=== PATIENT | female | born 1955 | race Caucasian/White ===

== ENCOUNTER 2024-02-24 09:43 | Day surgery (SDC) | payer MEDICARE, BC ==
[2024-02-24] MEDS ORDERED: Sodium Chloride 0.9% 10 ML Syringe IV ONE (09:44)
[2024-02-24] MEDS ORDERED: Dexamethasone 4 MG/ML SDV IV ONE (09:44)
[2024-02-24] MEDS ORDERED: Midazolam 1 MG/ML 2 ML SDV IV ONE (09:44)
[2024-02-24] MEDS ORDERED: Acetaminophen 325 MG Tab PO PRN (10:15)
[2024-02-24] MEDS ORDERED: Ondansetron 4 MG/2 ML SDV IVPUSH PRN (10:15)
[2024-02-24] MEDS ORDERED: Acetaminophen/Codeine 300-30 MG Tab PO PRN (10:15)
[2024-02-24] MEDS: Sodium Chloride 0.9% 10 ML Syringe FLUSH PRN (10:29)
[2024-02-24] MEDS: Proparacaine 0.5% Ophth Soln 15 ML Bottle EYERT ONE ×2 (10:30→10:52)
[2024-02-24] MEDS: Moxifloxacin 0.5% Ophth Soln 3 ML Bottle EYERT ONE (10:31)
[2024-02-24] MEDS: Povidone-Iodine 5% Sterile Ophth Soln 30 ML Bottle EYERT ONE ×2 (10:32→10:53)
[2024-02-24] MEDS: Tropicamide 1% Ophth Soln 15 ML Bottle EYERT ONE (10:33)
[2024-02-24] MEDS: Cataract Ophth Solution EYERT ONE (10:34)
[2024-02-24] MEDS: Timolol Maleate 0.5% Ophth Soln 5 ML Bottle EYERT ONE (10:34)
[2024-02-24] MEDS: Phenylephrine 10% Ophth Soln 5 ML Bot EYERT ONE (10:34)
[2024-02-24] MEDS: Lidocaine 1% 30 ML SDV ONE (11:02)
[2024-02-24] MEDS: Vancomycin 500 MG SDV EYERT ONE (11:03)
[2024-02-24] MEDS: Diclofenac Sodium 0.1% Ophth Soln 5 ML Bottle EYERT ONE (11:11)
[2024-02-24] MEDS: Apraclonidine 0.5% Ophth Soln 5 ML Bot EYERT ONE (11:11)
[2024-02-24] MEDS: Dexamethasone/Neomycin/Polymyxin B Ophth Oint 3.5 GM Tube EYERT ONE (11:12)
[2024-02-24 11:49] VITALS: BP 145/88; PULSE 81
== END 2024-02-24 11:45 | disposition home or self-care (01) ==
LOC: DL.SDS 09:43
PROVIDERS: ATTEND Ophthalmology
DX: H25.811 Combined forms of age-related cataract, right eye (principal); E78.5 Hyperlipidemia, unspecified; I10 Essential (primary) hypertension; E03.9 Hypothyroidism, unspecified; E66.9 Obesity, unspecified; Z79.899 Other long term (current) drug therapy; Z79.890 Hormone replacement therapy; Z79.82 Long term (current) use of aspirin; Z88.8 Allergy status to other drugs, medicaments and biological substances; Z68.43 Body mass index [BMI] 50.0-59.9, adult
CPT/HCPCS: A9270-GY; J1100; J2250; J3370; J3490; V2787-GY

== ENCOUNTER 2024-03-09 10:03 | Day surgery (SDC) | payer MEDICARE, BC ==
[2024-03-09] MEDS ORDERED: Midazolam 1 MG/ML 2 ML SDV IV ONE (10:04)
[2024-03-09] MEDS ORDERED: Sodium Chloride 0.9% 10 ML Syringe IV ONE (10:04)
[2024-03-09] MEDS ORDERED: Dexamethasone 4 MG/ML SDV IV ONE (10:04)
[2024-03-09] MEDS ORDERED: Ondansetron 4 MG/2 ML SDV IVPUSH PRN (10:15)
[2024-03-09] MEDS ORDERED: Acetaminophen 325 MG Tab PO PRN (10:15)
[2024-03-09] MEDS ORDERED: Acetaminophen/Codeine 300-30 MG Tab PO PRN (10:15)
[2024-03-09] MEDS: Sodium Chloride 0.9% 10 ML Syringe FLUSH PRN (10:26)
[2024-03-09] MEDS: Proparacaine 0.5% Ophth Soln 15 ML Bottle EYELF ONE ×2 (10:31→11:28)
[2024-03-09] MEDS: Moxifloxacin 0.5% Ophth Soln 3 ML Bottle EYELF ONE (10:32)
[2024-03-09] MEDS: Povidone-Iodine 5% Sterile Ophth Soln 30 ML Bottle EYELF ONE ×2 (10:32→11:28)
[2024-03-09] MEDS: Phenylephrine 10% Ophth Soln 5 ML Bot EYELF ONE (10:33)
[2024-03-09] MEDS: Tropicamide 1% Ophth Soln 15 ML Bottle EYELF ONE (10:33)
[2024-03-09] MEDS: Timolol Maleate 0.5% Ophth Soln 5 ML Bottle EYELF ONE (10:34)
[2024-03-09] MEDS: Cataract Ophth Solution EYELF ONE (10:34)
[2024-03-09] MEDS: Apraclonidine 0.5% Ophth Soln 5 ML Bot EYELF ONE (11:28)
[2024-03-09] MEDS: Diclofenac Sodium 0.1% Ophth Soln 5 ML Bottle EYELF ONE (11:28)
[2024-03-09] MEDS: Dexamethasone/Neomycin/Polymyxin B Ophth Oint 3.5 GM Tube EYELF ONE (11:28)
[2024-03-09] MEDS: Lidocaine 1% 30 ML SDV ONE (11:32)
[2024-03-09] MEDS: VANCOmycin 500 MG SDV EYELF ONE (11:32)
[2024-03-09 12:36] VITALS: BP 154/83; PULSE 76
== END 2024-03-09 12:10 | disposition home or self-care (01) ==
LOC: DL.SDS 10:03
PROVIDERS: ATTEND Ophthalmology
DX: H25.812 Combined forms of age-related cataract, left eye (principal); I10 Essential (primary) hypertension; E78.5 Hyperlipidemia, unspecified; E03.9 Hypothyroidism, unspecified; Z79.82 Long term (current) use of aspirin; Z79.890 Hormone replacement therapy; Z79.899 Other long term (current) drug therapy
CPT/HCPCS: 66984; A9270; J3370; J1100; J2250; J3490